=== PATIENT | female | born 1950 | race Caucasian/White ===

== ENCOUNTER 2021-04-02 11:38 | Emergency (ER) | payer BC ==
[~2021-04-02] VITALS: Ht 165.1 cm; Wt 88.9 kg
[~2021-04-02 11:38] MED LIST: ASPIRIN EC325 M1 PO; PROCARDIA XL60 MG PO; PROTONIX40 M2 PO; SIMVASTATIN40 MG PO; TOPROL XL50 MG PO; ZOLOFT 50 MG TA50 M1 PO
[2021-04-02] MEDS ORDERED: FAMOTIDINE 10 M10 MG PO (11:57)
[2021-04-02 12:32] LABS: ABSOLUTE BASOPHILS 0.1 thou/uL (0.0-0.2); ABSOLUTE EOSINOPHILS 0.3 thou/uL (0.0-0.7); ABSOLUTE LYMPHOCYTES 1.6 thou/uL (0.8-5.3); ABSOLUTE MONOCYTES 0.5 thou/uL (0.0-1.2); BASOPHILS 1.2 %; EOSINOPHILS 5.2 %; HEMATOCRIT 35.4 % (37.0-47.0); HEMOGLOBIN 11.7 gm/dL (12.0-15.0); LYMPHOCYTES 24.1 %; MCH 28.3 pg (26.0-34.0); MCV 85.9 fL (80.0-100.0); MPV 9.2 fl. (7.2-11.1); NUCLEATED RBCS 0 /100WBC; PLATELET COUNT* 163 thou/uL (150-400); POLYS 61.5 %; RBC 4.13 mil/uL (4.20-5.00); RDW-CV 15.1 % (10.5-14.5); WBC 6.5 thou/uL (4.0-11.0)
[2021-04-02 12:43] LABS: CALCIUM 8.3 mg/dL (8.5-10.1); CREATININE 0.7 mg/dL (0.6-1.3); POTASSIUM 4.1 mmol/L (3.5-5.1)
[2021-04-02 12:54] LABS: ALBUMIN 3.4 g/dL (3.4-5.0); MAGNESIUM 2.1 mg/dL (1.8-2.4); TOTAL BILIRUBIN 0.2 mg/dL (<0.1-1.0); TOTAL PROTEIN 6.5 g/dL (6.4-8.2)
[2021-04-02 14:43] VITALS: BP 170/80
--- NOTE | 2021-04-03 11:22 | EKG ---
[place] [address] ELECTROCARDIOGRAM REPORT Name: DESI BOLIVAR Room: [facility]#: [id number] Admission: 04/02/21 Attend Phys: Discharge: 04/02/21 Date of : 50 Date of Service: 04/02/21 1157 Report #: [id number] THIS REPORT FOR: //name// [facility] ED Test Date: 2021-04-02 Test Time: 11:57:22 Pat Name: DESI BOLIVAR Department: Room: Gender: Utility Inspector: : 1950 Requested By: Claudio Roman Order Number: [id number] MD: Medardo Hector Measurements Intervals Ethel Rate: 65 P: -6 GA: 145 QRS: 9 QRSD: 115 T: 31 QT: 382 QTc: 398 Interpretive Statements Sinus rhythm Nonspecific intraventricular conduction delay septal infarct, age indeterminate Compared to ECG 04/18/2011 07:38:10 Myocardial infarct finding now present Electronically Signed On 04-03-2021 11:21:54 [employer] by Medardo Hector [email or web address] <ELECTRONICALLY SIGNED> By: Medardo Hector MD, FACC 04/03/21 1121 1157 1157 Medardo Hector MD, [facility] /EPI
== END 2021-04-02 14:43 | disposition home or self-care (01) ==
LOC: M.ERS 11:38
PROVIDERS: Emergency Medicine Emergency Medical Services
DX: R00.2 Palpitations (principal); I10 Essential (primary) hypertension; K21.9 Gastro-esophageal reflux disease without esophagitis; Z90.710 Acquired absence of both cervix and uterus; Z90.12 Acquired absence of left breast and nipple; Z98.890 Other specified postprocedural states; Z79.82 Long term (current) use of aspirin; Z79.899 Other long term (current) drug therapy; Z88.0 Allergy status to penicillin; Z88.2 Allergy status to sulfonamides